=== PATIENT | female | born 1965 | race Two or more races ===

== ENCOUNTER 2016-08-24 21:23 | Emergency (ER) | payer BC ==
[2016-08-25 01:20] LABS: ABSOLUTE NEUTROPHIL COUNT 4.9 K/mm3 (1.8-7.7); BASO % 0.2 % (0.2-1.0); EOS # 0.1 (0.0-0.5); HEMATOCRIT 34.8 % (37.0-47.0); IMM NEUT% 0.1 % (0-1); LYMPH # 2.6 (1.0-4.8); LYMPH % 32.6 % (15-45); MEAN CORPUSCULAR HEMOGLOBIN 30.7 pg (27.0-31.0); MEAN CORPUSCULAR HGB CONC 34.5 g/dl (33.0-37.0); MEAN PLATELET VOLUME 9.6 fl (7.4-10.4); MONO # 0.4 (0.0-0.8); MONO % 5.2 % (4-12); NEUT % 60.9 % (43-75); PLATELET COUNT 252 K/mm3 (130-400); RED CELL DISTRIBUTION WIDTH 12.8 % (11.5-14.5)
[2016-08-25] MEDS ORDERED: SODIUM CHLORIDE 0.9% 500 ML ONE (01:26)
[2016-08-25] MEDS ORDERED: ONDANSETRON 4 MG/2ML 2 ML VIAL ONE (01:27)
[2016-08-25] MEDS ORDERED: HYDROMORPHONE HCL 1 MG/ML SYRINGE ONE (01:27)
[2016-08-25 01:53] LABS: ALB/GLOB RATIO 1.3 (>1.0); ALBUMIN 3.8 gm/dL (3.5-5.7)
--- NOTE | 2016-08-25 07:52 | US ---
EXAMINATION: Limited gallbladder ultrasound examination was performed. CLINICAL INDICATION: Right upper quadrant pain. COMPARISON: None FINDINGS: Gallbladder: 9.0 x 2.9 cm. Cholelithiasis: Present. There is a large nonmobile calculus measuring 5.2 cm in size. No Hemanth sludge is also noted. Gallbladder wall thickness: 3.1 millimeters. Pericholecystic fluid: Absent Common bile duct:Not dilated and measures 4 millimeters. Sonographic Novoa's sign: Elicited IMPRESSION: Cholelithiasis with nonspecific gallbladder wall thickening and positive sonographic Novoa sign. Findings may reflect early or subacute cholecystitis. There is no common duct dilatation. Findings were communicated by [facility] to the emergency department at: 2:31 AM 08/25/2016
--- NOTE | 2016-08-25 09:43 | CONS ---
SUSI CAMPBELL DATE OF CONSULTATION: August 25, 2016 REQUESTING PHYSICIAN: Mat Gomez M.D. HISTORY OF PRESENT ILLNESS: I had the pleasure of seeing Ms. Denny Medrano in the emergency department today with right upper quadrant abdominal pain. Ms. Baldwin presented to the emergency department today with abdominal pain that progressively localized to the right upper quadrant. The abdominal pain was consistent and lasting a number of hours which required her to present to the emergency department. Upon arriving in the emergency department with resuscitation and analgesic, she had complete resolution of her abdominal pain. Upon entering the emergency department, she underwent evaluation. PHYSICAL EXAMINATION: On physical examination, she has minimal right upper quadrant tenderness. This has improved after being admitted to the hospital. Her abdomen is soft and nontender at this point. She underwent laboratory evaluation which revealed a white count of 8.1 which is within normal range, and the remaining electrolytes were all normal with a normal bilirubin and normal lipase. She had an ultrasound which demonstrated gallstones but no evidence of acute cholecystitis. ASSESSMENT AND PLAN: I had a long discussion today with Ms. Denny Medrano via [employer] translate. This made the history taking quite difficult, but I was able to ascertain that this is not her first episode of right upper quadrant abdominal pain. The pain was worse today and is now resolved. With the ultrasound report suggesting that she has mildly thickened right upper quadrant abdominal pain and a classic story for biliary colic as well as an initial exam in the emergency department demonstrating right upper quadrant pain, I suspect that this is a biliary colic bordering on acute cholecystitis. I recommended two options for Ms. Denny Medrano. First, is admission to the hospital with settling with analgesics and antibiotics and then planned laparoscopic cholecystectomy within the next 12 to 24 hours. The alternative is discharge home with antibiotics and analgesics and the plan for return followup to the general surgery clinic in [place] for elective cholecystectomy. Ms. Baldwin took some time to consider options and felt that the best approach would be to organize her work life and then return for an elective cholecystectomy via the general surgery office at a later date. I did financial health counselor them on the symptoms and findings of acute cholecystitis and instructed them to return to the hospital if their pain returned or if they had any questions or concerns. At this point, Ms. Baldwin will be discharged home. I did recommend antibiotics, although she has a normal white count I think that this is early cholecystitis, as well as analgesic. She is instructed to return to the emergency department if she has acute symptoms or to the general surgery clinic if her symptoms remain quiet and plan for elective cholecystectomy.
== END 2016-08-25 03:14 | disposition home or self-care (01) ==
LOC: ED 21:23
DX: K81.0 Acute cholecystitis (principal); R11.0 Nausea; E11.9 Type 2 diabetes mellitus without complications
CPT/HCPCS: 83690; 85025; 80053; 76705; 96375; 99284; 96374; 96361; 99283; J1170; J2405; J7040